=== PATIENT | female | born 1940 | race Caucasian/White ===

== ENCOUNTER 2017-07-16 04:56 | Emergency (ER) | payer SELFPAY ==
[2017-07-16] VITALS (8 sets, daily range): BP systolic 144–202; BP diastolic 67–116; PULSE 72–100; RESP 15–18; TEMP 97.8; O2SAT 97–100
[~2017-07-16 04:56] MED LIST: LORT7.5T3 PO; WARF7.5 PO; [UNRECOGNIZED DRUG - OTHER] PO
[2017-07-16] MEDS ORDERED: VITATAB43 PO (05:28)
[2017-07-16] MEDS ORDERED: CALC1TAB12 PO (05:28)
[2017-07-16] MEDS ORDERED: COUM7.5T PO (05:28)
[2017-07-16] MEDS ORDERED: VITA1000 PO (05:28)
[2017-07-16] MEDS ORDERED: [UNRECOGNIZED DRUG - OTHER] (05:28)
[2017-07-16] MEDS ORDERED: [UNRECOGNIZED DRUG - OTHER] (05:28)
[2017-07-16] MEDS ORDERED: SODIUM CHLOR 0.9% 1000 ML INJ 1,000 ML IV ONE (05:40)
[2017-07-16] MEDS ORDERED: SODIUM CHLORIDE 0.9% FLUSH 10 ML FLUSH IVF PRN (05:45)
--- NOTE | 2017-07-16 05:57 | PD ---
HPI Chief Complaint: Cardiac Complaint Time Seen by Provider: 05:04 Travel History International Travel<30 days: No Contact w/Intl Traveler<30days: No Traveled to known affect area: No History of Present Illness HPI 77-year-old female arrives to the ER by private vehicle. She states she woke up feeling shaky. She took her blood pressure and it was high, 180 over systolic. She denies chest pain shortness of breath. She has had no loss of consciousness. Nausea is reported. No vomiting. Diarrhea is reported. She reports feeling well lately. Onset sudden. Severity mild. PFSH Past Medical History High Cholesterol: Yes Diminished Hearing: No Hypertension: Yes Immunizations Current: Yes Menopausal: Yes Past Surgical History Appendectomy: Yes Cardiac Surgery: Yes (MITRAL VALVE REPLACEMENT) Tonsillectomy: Yes Social History Alcohol Use: Yes (2 X A WEEK) Tobacco Use: No Substance Use: No Allergies-Medications (Allergen,Severity, Reaction): Coded Allergies: No Known Allergies (Verified Adverse Reaction, Unknown, 07/16/17) Reported Meds & Prescriptions Reported Meds & Active Scripts Active Reported Vitamin U70-Gcpaf Acid (Cobalamine Combinations) 500-400 Mcg Tab 1 Tab PO DAILY Vitamin D-1000 (Cholecalciferol) 1,000 Unit Tab 1,000 Units PO DAILY Calcium 500 +D (Calcium Carbonate-Cholecalciferol) 500-400 Mg-Unit Tab 1 Tab PO DAILY [coversly] [Eeztral] Coumadin (Warfarin) 7.5 Mg Tab 9.5 Mg PO DAILY [Eeztral] 10 Mg PO DAILY Review of Systems Except as stated in HPI: all other systems reviewed are Neg General / Constitutional: No: Fever Physical Exam Narrative GENERAL: 77 yo F, WNWD, NAD Vital Signs Date Time Temp Pulse Resp B/P (MAP) Pulse Ox O2 Delivery O2 Flow Rate FiO2 07/16/17 05:42 99 Room Air 07/16/17 05:40 91 18 175/116 (135) 98 Room Air 07/16/17 05:29 100 16 188/82 (117) 100 Room Air 07/16/17 04:58 97.8 100 18 202/92 (128) 99 SKIN: Warm and dry. HEAD: Atraumatic. Normocephalic. EYES: Pupils equal and round. No scleral icterus. No injection or drainage. ENT: No nasal bleeding or discharge. Mucous membranes pink and moist. NECK: Trachea midline. No JVD. CARDIOVASCULAR: Regular rate and rhythm. RESPIRATORY: No accessory muscle use. Clear to auscultation. Breath sounds equal bilaterally. GASTROINTESTINAL: Abdomen soft, non-tender, nondistended. Hepatic and splenic margins not palpable. MUSCULOSKELETAL: Extremities without clubbing, cyanosis, or edema. No obvious deformities. NEUROLOGICAL: Awake and alert. No obvious cranial nerve deficits. Motor grossly within normal limits. Five out of 5 muscle strength in the arms and legs. Normal speech. PSYCHIATRIC: Appropriate mood and affect; insight and judgment normal. Data Data Last Documented VS Vital Signs Date Time Temp Pulse Resp B/P (MAP) Pulse Ox O2 Delivery O2 Flow Rate FiO2 07/16/17 05:42 99 Room Air 07/16/17 05:40 91 18 07/16/17 04:58 97.8 Orders Orders Electrocardiogram (07/16/17 ) Electrocardiogram (07/16/17 05:40) Complete Blood Count With Diff (07/16/17 05:40) Comprehensive Metabolic Panel (07/16/17 05:40) Magnesium (Mg) (07/16/17 05:40) Ckmb (Isoenzyme) Profile (07/16/17 05:40) Troponin I (07/16/17 05:40) Urinalysis - C+S If Indicated (07/16/17 05:40) Chest, Single Ap (07/16/17 05:40) Blood Glucose (07/16/17 05:40) Ecg Monitoring (07/16/17 05:40) Iv Access Insert/Monitor (07/16/17 05:40) Oximetry (07/16/17 05:40) Sodium Chloride 0.9% Flush (Ns Flush) (07/16/17 05:45) Sodium Chlor 0.9% 1000 Ml Inj (Ns 1000 M (07/16/17 05:40) Orthostatic Vital Signs (07/16/17 05:40) CKMB (07/16/17 05:45) CKMB% (07/16/17 05:45) Labs Laboratory Tests Test 07/16/17 05:45 07/16/17 06:25 White Blood Count 7.2 TH/MM3 Red Blood Count 4.10 MIL/MM3 Hemoglobin 13.4 GM/DL Hematocrit 37.8 % Mean Corpuscular Volume 92.1 FL Mean Corpuscular Hemoglobin 32.7 PG Mean Corpuscular Hemoglobin Concent 35.5 % Red Cell Distribution Width 14.1 % Platelet Count 294 TH/MM3 Mean Platelet Volume 7.8 FL Neutrophils (%) (Auto) 45.4 % Lymphocytes (%) (Auto) 45.8 % Monocytes (%) (Auto) 6.1 % Eosinophils (%) (Auto) 2.2 % Basophils (%) (Auto) 0.5 % Neutrophils # (Auto) 3.3 TH/MM3 Lymphocytes # (Auto) 3.3 TH/MM3 Monocytes # (Auto) 0.4 TH/MM3 Eosinophils # (Auto) 0.2 TH/MM3 Basophils # (Auto) 0.0 TH/MM3 CBC Comment DIFF FINAL Differential Comment Blood Urea Nitrogen 19 MG/DL Creatinine 1.08 MG/DL Random Glucose 123 MG/DL Total Protein 8.1 GM/DL Albumin 4.4 GM/DL Calcium Level 9.3 MG/DL Magnesium Level 1.9 MG/DL Alkaline Phosphatase 90 U/L Aspartate Amino Transf (AST/SGOT) 34 U/L Alanine Aminotransferase (ALT/SGPT) 27 U/L Total Bilirubin 0.4 MG/DL Sodium Level 132 MEQ/L Potassium Level 3.5 MEQ/L Chloride Level 96 MEQ/L Carbon Dioxide Level 25.4 MEQ/L Anion Gap 11 MEQ/L Estimat Glomerular Filtration Rate 49 ML/MIN Total Creatine Kinase 212 U/L Creatine Kinase MB 1.4 NG/ML Creatine Kinase MB % 0.7 % Troponin I LESS THAN 0.02 NG/ML MDM Medical Decision Making Medical Screen Exam Complete: Yes Emergency Medical Condition: Yes Medical Record Reviewed: Yes Differential Diagnosis Anemia, electrolyte imbalance, anxiety, arrhythmia Narrative Course CBC & BMP Diagram 07/16/17 05:45 Total Protein 8.1, Albumin 4.4, Calcium Level 9.3, Magnesium Level 1.9, Alkaline Phosphatase 90, Aspartate Amino Transf (AST/SGOT) 34, Alanine Aminotransferase (ALT/SGPT) 27, Total Bilirubin 0.4 Tn < 0.02 Total CK 212 EKG: sinus, rate 92, normal axis intervals Patient reevaluated at 6:45 AM and found to be comfortable in her room. Case discussed with oncoming provider. Urinalysis is pending. Follow-up and reassess patient with disposition pending same. Jabier Patiño MD Jul 16, 2017 05:57
[2017-07-16 06:00] LABS: AUTOMATED NEUTROPHIL # 3.3 TH/MM3 (1.8-7.7); BASOPHIL % 0.5 % (0.0-2.0); EOSINOPHIL # 0.2 TH/MM3 (0-0.4); EOSINOPHIL % 2.2 % (0.0-4.0); HEMATOCRIT 37.8 % (35.0-46.0); HEMOGLOBIN 13.4 GM/DL (11.6-15.3); LYMPH % 45.8 % (9.0-44.0); LYMPHOCYTE # 3.3 TH/MM3 (1.0-4.8); MEAN CELL VOLUME 92.1 FL (80.0-100.0); MEAN CORPUSCULAR HEMOGLOBIN 32.7 PG (27.0-34.0); MEAN CORPUSCULAR HGB CONC 35.5 % (32.0-36.0); MEAN PLATELET VOLUME 7.8 FL (7.0-11.0); MONO % 6.1 % (0.0-8.0); MONOCYTE # 0.4 TH/MM3 (0-0.9); NEUT % 45.4 % (16.0-70.0); PLATELET COUNT 294 TH/MM3 (150-450); RED CELL DISTRIBUTION WIDTH 14.1 % (11.6-17.2); WHITE BLOOD COUNT 7.2 TH/MM3 (4.0-11.0)
[2017-07-16 06:23] LABS: ALBUMIN 4.4 GM/DL (3.4-5.0); ALT (GPT) 27 U/L (10-53); AST (GOT) 34 U/L (15-37); BICARBONATE 25.4 MEQ/L (21.0-32.0); BLOOD UREA NITROGEN 19 MG/DL (7-18); CALCIUM 9.3 MG/DL (8.5-10.1); CHLORIDE 96 MEQ/L (98-107); CREATININE 1.08 MG/DL (0.50-1.00); GLOMERULAR FILTRATION RATE 49 ML/MIN (>89); GLUCOSE,RANDOM 123 MG/DL (74-106); MAGNESIUM 1.9 MG/DL (1.5-2.5); SODIUM (NA) 132 MEQ/L (136-145)
[2017-07-16 06:27] LABS: ALKALINE PHOSPHATASE 90 U/L (45-117); TOTAL BILIRUBIN ADULT 0.4 MG/DL (0.2-1.0); TOTAL PROTEIN 8.1 GM/DL (6.4-8.2); TROPONIN I LESS THAN 0.02 NG/ML (0.02-0.05)
--- NOTE | 2017-07-16 06:30 | RADRPT ---
EXAM DATE/TIME: 07/16/2017 05:44 [facility] COMPARISON: No previous studies available for comparison. INDICATIONS : Chest palpitations. MEDICAL HISTORY : Hypertension. SURGICAL HISTORY : Valve replacement. ENCOUNTER: Initial ACUITY: 1 day PAIN SCORE: 0/10 LOCATION: chest FINDINGS: Opacity in the right cardiophrenic angle is likely epicardial fat. The lungs are otherwise symmetrica lly aerated and grossly clear. Nothing to suggest effusion. Cardiac contours are satisfactory. There is been previous sternotomy. CONCLUSION: No acute disease Harshad Bazan MD on July 16, 2017 at 6:27 Board Certified Radiologist. This report was verified electronically.
[2017-07-16 07:07] LABS: BILIRUBIN, URINE NEG (NEG); BLOOD, URINE SMALL (NEG); GLUCOSE,URINE NEG (NEG); KETONE, URINE NEG (NEG); NITRITE,URINE NEG (NEG); SQUAMOUS EPITHELIAL CELL URINE <1 /hpf (0-5); URINE COLOR YELLOW (YELLW/STRAW); URINE LEUKOCYTE ESTERASE SMALL (NEG)
--- NOTE | 2017-07-16 07:58 | PD ---
Physical Exam Narrative Patient signed out to me by Dr. Patiño, please see his documentation for complete details. Briefly, patient is a 77 year old female who comes in after she woke up with diarrhea this morning. She says she just didn't feel right, so she took her blood pressure and noticed it was high. She says that she felt like her heart was beating fast as well. She believes this is related to eating raw vegetables , potato chips and ice cream for dinner. She never had any chest pain or SOB. She denies any abdominal pain. Currently, she is symptom free and feels better. Exam shows abdomen to be soft and nontender. Lungs CTA. Data Data Last Documented VS Vital Signs Date Time Temp Pulse Resp B/P (MAP) Pulse Ox O2 Delivery O2 Flow Rate FiO2 07/16/17 07:00 77 18 164/77 (106) 97 Room Air 07/16/17 04:58 97.8 Orders Orders Electrocardiogram (07/16/17 05:40) Complete Blood Count With Diff (07/16/17 05:40) Comprehensive Metabolic Panel (07/16/17 05:40) Magnesium (Mg) (07/16/17 05:40) Ckmb (Isoenzyme) Profile (07/16/17 05:40) Troponin I (07/16/17 05:40) Urinalysis - C+S If Indicated (07/16/17 05:40) Chest, Single Ap (07/16/17 05:40) Blood Glucose (07/16/17 05:40) Ecg Monitoring (07/16/17 05:40) Iv Access Insert/Monitor (07/16/17 05:40) Oximetry (07/16/17 05:40) Sodium Chloride 0.9% Flush (Ns Flush) (07/16/17 05:45) Sodium Chlor 0.9% 1000 Ml Inj (Ns 1000 M (07/16/17 05:40) Orthostatic Vital Signs (07/16/17 05:40) CKMB (07/16/17 05:45) CKMB% (07/16/17 05:45) Labs Laboratory Tests Test 07/16/17 05:45 07/16/17 06:25 White Blood Count 7.2 TH/MM3 Red Blood Count 4.10 MIL/MM3 Hemoglobin 13.4 GM/DL Hematocrit 37.8 % Mean Corpuscular Volume 92.1 FL Mean Corpuscular Hemoglobin 32.7 PG Mean Corpuscular Hemoglobin Concent 35.5 % Red Cell Distribution Width 14.1 % Platelet Count 294 TH/MM3 Mean Platelet Volume 7.8 FL Neutrophils (%) (Auto) 45.4 % Lymphocytes (%) (Auto) 45.8 % Monocytes (%) (Auto) 6.1 % Eosinophils (%) (Auto) 2.2 % Basophils (%) (Auto) 0.5 % Neutrophils # (Auto) 3.3 TH/MM3 Lymphocytes # (Auto) 3.3 TH/MM3 Monocytes # (Auto) 0.4 TH/MM3 Eosinophils # (Auto) 0.2 TH/MM3 Basophils # (Auto) 0.0 TH/MM3 CBC Comment DIFF FINAL Differential Comment Blood Urea Nitrogen 19 MG/DL Creatinine 1.08 MG/DL Random Glucose 123 MG/DL Total Protein 8.1 GM/DL Albumin 4.4 GM/DL Calcium Level 9.3 MG/DL Magnesium Level 1.9 MG/DL Alkaline Phosphatase 90 U/L Aspartate Amino Transf (AST/SGOT) 34 U/L Alanine Aminotransferase (ALT/SGPT) 27 U/L Total Bilirubin 0.4 MG/DL Sodium Level 132 MEQ/L Potassium Level 3.5 MEQ/L Chloride Level 96 MEQ/L Carbon Dioxide Level 25.4 MEQ/L Anion Gap 11 MEQ/L Estimat Glomerular Filtration Rate 49 ML/MIN Total Creatine Kinase 212 U/L Creatine Kinase MB 1.4 NG/ML Creatine Kinase MB % 0.7 % Troponin I LESS THAN 0.02 NG/ML Urine Color YELLOW Urine Turbidity CLEAR Urine pH 6.0 Urine Specific [place] 1.010 Urine Protein NEG mg/dL Urine Glucose (UA) NEG mg/dL Urine Ketones NEG mg/dL Urine Occult Blood SMALL Urine Nitrite NEG Urine Bilirubin NEG Urine Urobilinogen LESS THAN 2.0 MG/DL Urine Leukocyte Esterase SMALL Urine RBC 4 /hpf Urine WBC LESS THAN 1 /hpf Urine Squamous Epithelial Cells <1 /hpf Microscopic Urinalysis Comment CULT NOT INDICATED MDM Supervised Visit with DINESH: No Narrative Course Labs show no acute abnormalities. Patient is resting comfortably. Likely symptoms resulted from the episode of diarrhea. Patient is comfortable with discharge at this time. Advised to return any time for any worsening symptoms. Diagnosis Primary Impression: Diarrhea Qualified Codes: R19.7 - Diarrhea, unspecified Additional Impression: Dehydration Patient Instructions: Acute Diarrhea (ED), Dehydration (ED), General Instructions Additional Instruction: Follow up with your doctors. Return to the ED as needed for any worsening symptoms. Disposition: 01 DISCHARGE HOME Condition: Stable Smitha Platt MD Jul 16, 2017 07:58
--- NOTE | 2017-07-16 19:34 | EKG ---
Date Performed: 07/16/2017 Time Performed: 05:20:27 PTAGE: 77 years EKG: Sinus rhythm NONSPECIFIC ST & T-WAVE ABNORMALITY BORDERLINE ECG NO PREVIOUS TRACING DOCTOR: Jesus Vargas Interpretating Date/Time 07/16/2017 19:31:05
== END 2017-07-16 09:00 | disposition home or self-care (01) ==
LOC: NEPE 04:56
DX: R19.7 Diarrhea, unspecified (principal); E86.0 Dehydration; R94.31 Abnormal electrocardiogram [ECG] [EKG]; I10 Essential (primary) hypertension; E78.00 Pure hypercholesterolemia, unspecified; Z95.2 Presence of prosthetic heart valve; Z79.01 Long term (current) use of anticoagulants; Z79.899 Other long term (current) drug therapy
CPT/HCPCS: 71045; 80053; 81001; 82550; 82552; 83735; 84484; 85025; 93005; 96360; 99285; J7030

== ENCOUNTER 2017-07-18 09:56 | Inpatient (IN) | payer BC ==
[~2017-07-18] VITALS: Ht 167.6 cm; Wt 57.0 kg
[~2017-07-18 09:56] MED LIST changes: +CALC1TAB12 PO; +COUM7.5T PO; -LORT7.5T3 PO; +VITA1000 PO; +VITATAB43 PO; -WARF7.5 PO; +[UNRECOGNIZED DRUG - OTHER]; +[UNRECOGNIZED DRUG - OTHER]
[2017-07-18 10:06] VITALS: BP 173/78; PULSE 101; RESP 24; TEMP 100.4; O2SAT 100
[2017-07-18] MEDS ORDERED: LORazepam 2 MG/ML VIAL IV PUSH ONE (10:15)
[2017-07-18] MEDS ORDERED: SODIUM CHLORIDE 0.9% FLUSH 10 ML FLUSH IV FLUSH PRN ×2 (10:15→15:30)
[2017-07-18 10:57] LABS: BILIRUBIN, URINE NEG (NEG); BLOOD, URINE TRACE (NEG); GLUCOSE,URINE NEG (NEG); KETONE, URINE 40 mg/dL (NEG); NITRITE,URINE NEG (NEG); RENAL EPITHELIAL CELLS <1 /hpf; SQUAMOUS EPITHELIAL CELL URINE 1 /hpf (0-5); URINE COLOR YELLOW (YELLW/STRAW); URINE LEUKOCYTE ESTERASE NEG (NEG)
--- NOTE | 2017-07-18 11:07 | RADRPT ---
EXAM DATE/TIME: 07/18/2017 10:27 [facility] COMPARISON: CHEST SINGLE AP, July 16, 2017, 5:44. INDICATIONS : Syncope MEDICAL HISTORY : Hypertension. SURGICAL HISTORY : Valve replacement ENCOUNTER: Initial ACUITY: 1 day PAIN SCORE: 0/10 LOCATION: chest FINDINGS: Sternal wires are noted. Lungs are clear. The heart and pulmonary vascularity are normal. The porti on of the bony skeleton visualized is unremarkable. CONCLUSION: No acute disease. Deni Joel MD FACR on July 18, 2017 at 11:04 Board Certified Radiologist. This report was verified electronically.
[2017-07-18 11:08] LABS: INTERNATIONAL NORMALIZED RATIO 2.4 RATIO; PROTHROMBIN TIME - PATIENT 24.5 SEC (9.8-11.6)
[2017-07-18 11:16] LABS: AUTOMATED NEUTROPHIL # 7.2 TH/MM3 (1.8-7.7); BASOPHIL % 0.4 % (0.0-2.0); EOSINOPHIL % 0.2 % (0.0-4.0); HEMATOCRIT 36.1 % (35.0-46.0); HEMOGLOBIN 12.8 GM/DL (11.6-15.3); LYMPH % 18.8 % (9.0-44.0); LYMPHOCYTE # 1.8 TH/MM3 (1.0-4.8); MEAN CORPUSCULAR HEMOGLOBIN 31.6 PG (27.0-34.0); MEAN CORPUSCULAR HGB CONC 35.5 % (32.0-36.0); MEAN PLATELET VOLUME 8.2 FL (7.0-11.0); MONO % 5.7 % (0.0-8.0); MONOCYTE # 0.5 TH/MM3 (0-0.9); NEUT % 74.9 % (16.0-70.0); PLATELET COUNT 320 TH/MM3 (150-450); RED BLOOD COUNT 4.06 MIL/MM3 (4.00-5.30); RED CELL DISTRIBUTION WIDTH 13.8 % (11.6-17.2); WHITE BLOOD COUNT 9.7 TH/MM3 (4.0-11.0)
[2017-07-18 11:34] LABS: ACETAMINOPHEN LESS THAN 2.0 MCG/ML (10.0-30.0); ALBUMIN 4.5 GM/DL (3.4-5.0); ALKALINE PHOSPHATASE 75 U/L (45-117); ALT (GPT) 23 U/L (10-53); AST (GOT) 35 U/L (15-37); BICARBONATE 20.7 MEQ/L (21.0-32.0); BLOOD UREA NITROGEN 11 MG/DL (7-18); CALCIUM 9.7 MG/DL (8.5-10.1); CHLORIDE 92 MEQ/L (98-107); CREATININE 1.17 MG/DL (0.50-1.00); GLOMERULAR FILTRATION RATE 45 ML/MIN (>89); GLUCOSE,RANDOM 138 MG/DL (74-106); SODIUM (NA) 125 MEQ/L (136-145); TOTAL BILIRUBIN ADULT 0.8 MG/DL (0.2-1.0); TOTAL PROTEIN 8.2 GM/DL (6.4-8.2); TROPONIN I LESS THAN 0.02 NG/ML (0.02-0.05)
[2017-07-18] MEDS ORDERED: POTASSIUM CHLORIDE 10 MEQ CONTROLLED RELEASE TAB PO ONE (12:00)
[2017-07-18] MEDS ORDERED: MIDAZOLAM HCL 2 MG/2 ML VIAL IV PUSH ONE (12:15)
--- NOTE | 2017-07-18 13:05 | RADRPT ---
EXAM DATE/TIME: 07/18/2017 12:12 [facility] COMPARISON: No previous studies available for comparison. INDICATIONS : Altered mental status RADIATION DOSE: 31.17 CTDIvol (mGy) MEDICAL HISTORY : Cardiovascular disease. Hypertension. SURGICAL HISTORY : Appendectomy. ENCOUNTER: Initial ACUITY: 1 day PAIN SCALE: Non-responsive LOCATION: cranial TECHNIQUE: Multiple contiguous axial images were obtained of the head. Using automated exposure control and adj ustment of the mA and/or kV according to patient size, radiation dose was kept as low as reasonably a chievable to obtain optimal diagnostic quality images. DICOM format image data is available electro nically for review and comparison. FINDINGS: CEREBRUM: The ventricles are normal for age. No evidence of midline shift, mass lesion, hemorrhage or acute in farction. No extra-axial fluid collections are seen. POSTERIOR FOSSA: The cerebellum and brainstem are intact. The 4th ventricle is midline. The cerebellopontine angle i s unremarkable. EXTRACRANIAL: The visualized portion of the orbits is intact. SKULL: The calvaria is intact. No evidence of skull fracture. CONCLUSION: Normal examination. Harshad Bazan MD on July 18, 2017 at 13:03 Board Certified Radiologist. This report was verified electronically.
[2017-07-18 13:22] VITALS: BP 147/69; PULSE 105; RESP 22; O2SAT 100
--- NOTE | 2017-07-18 14:03 | PD ---
HPI Chief Complaint: Altered Mental Status Time Seen by Provider: 10:06 Travel History International Travel<30 days: No Contact w/Intl Traveler<30days: No Traveled to known affect area: No History of Present Illness HPI Patient is a 77-year-old female who is brought in by EMS due to altered mental status. Per EMS, there was someone working on her house and they saw her lugging a large trash can and they were worried about her, so they called 911. Patient is quite altered screaming "oh my God" over and over, and provides no history. She was seen here 2 days ago and discharged home from the emergency department [facility] Past Medical History Medical History: Unable to Obtain High Cholesterol: Yes Diminished Hearing: No Hypertension: Yes Immunizations Current: Yes Influenza Vaccination: No ?: Unknown Menopausal: Yes Past Surgical History Surgical History: Unable to Obtain Appendectomy: Yes Cardiac Surgery: Yes (MITRAL VALVE REPLACEMENT) Tonsillectomy: Yes Social History Alcohol Use: Yes (2 X A WEEK) Tobacco Use: No Substance Use: No Allergies-Medications (Allergen,Severity, Reaction): Coded Allergies: No Known Allergies (Verified Adverse Reaction, Unknown, 07/16/17) Reported Meds & Prescriptions Reported Meds & Active Scripts Active Reported Vitamin Z01-Fbkxv Acid (Cobalamine Combinations) 500-400 Mcg Tab 1 Tab PO DAILY Vitamin D-1000 (Cholecalciferol) 1,000 Unit Tab 1,000 Units PO DAILY Calcium 500 +D (Calcium Carbonate-Cholecalciferol) 500-400 Mg-Unit Tab 1 Tab PO DAILY [coversly] [Eeztral] Coumadin (Warfarin) 7.5 Mg Tab 9.5 Mg PO DAILY [Eeztral] 10 Mg PO DAILY Review of Systems ROS Limitations: Altered Mental Status Physical Exam Narrative GENERAL: Awake, agitated, confused. SKIN: Focused skin assessment warm/dry. Some bruising to the upper arms, no infection. HEAD: Atraumatic. Normocephalic. EYES: Pupils equal and round and reactive. No scleral icterus. Extraocular movements intact. ENT: Mucous membranes pink and moist. NECK: Trachea midline. No JVD. CARDIOVASCULAR: Regular rate and rhythm. No murmur appreciated. RESPIRATORY: No accessory muscle use. Clear to auscultation. Breath sounds equal bilaterally. GASTROINTESTINAL: Abdomen soft, non-tender, nondistended. MUSCULOSKELETAL: No obvious deformities. No clubbing. No cyanosis. No edema. NEUROLOGICAL: Awake and alert, confused, and does not follow directions.. No obvious cranial nerve deficits. Moving all of her extremities. Speech is clear. Data Data Last Documented VS Vital Signs Date Time Temp Pulse Resp B/P (MAP) Pulse Ox O2 Delivery O2 Flow Rate FiO2 07/18/17 13:22 105 22 147/69 (95) 100 Room Air 07/18/17 10:06 100.4 Orders Orders Ammonia (07/18/17 10:06) Complete Blood Count With Diff (07/18/17 10:06) Comprehensive Metabolic Panel (07/18/17 10:06) Creatine Kinase (Cpk) (07/18/17 10:06) Prothrombin Time / Inr (Pt) (07/18/17 10:06) Act Partial Throm Time (Ptt) (07/18/17 10:06) Troponin I (07/18/17 10:06) Thyroid Stimulating Hormone (07/18/17 10:06) Urinalysis - C+S If Indicated (07/18/17 10:06) Lactic Acid Sepsis Protocol (07/18/17 10:06) Chest, Single Ap (07/18/17 10:06) Ct Brain W/O Iv Contrast(Rout) (07/18/17 10:06) Blood Glucose (07/18/17 10:06) Ecg Monitoring (07/18/17 10:06) Iv Access Insert/Monitor (07/18/17 10:06) Oximetry (07/18/17 10:06) Sodium Chloride 0.9% Flush (Ns Flush) (07/18/17 10:15) Drug Screen, Random Urine (07/18/17 10:06) Alcohol (Ethanol) (07/18/17 10:06) Tylenol (Acetaminophen) (07/18/17 10:06) Salicylates (Aspirin) (07/18/17 10:06) Lorazepam Inj (Ativan Inj) (07/18/17 10:15) Electrocardiogram (07/18/17 ) Potassium Chloride (Kcl) (07/18/17 12:00) Midazolam Inj (Versed Inj) (07/18/17 12:15) Sodium Chlor 0.9% 1000 Ml Inj (Ns 1000 M (07/18/17 14:15) Ankle, Complete ([id number]) (07/18/17 ) Admit Order (Ed Use Only) (07/18/17 ) Labs Laboratory Tests Test 07/18/17 10:26 07/18/17 13:50 White Blood Count 9.7 TH/MM3 Red Blood Count 4.06 MIL/MM3 Hemoglobin 12.8 GM/DL Hematocrit 36.1 % Mean Corpuscular Volume 89.0 FL Mean Corpuscular Hemoglobin 31.6 PG Mean Corpuscular Hemoglobin Concent 35.5 % Red Cell Distribution Width 13.8 % Platelet Count 320 TH/MM3 Mean Platelet Volume 8.2 FL Neutrophils (%) (Auto) 74.9 % Lymphocytes (%) (Auto) 18.8 % Monocytes (%) (Auto) 5.7 % Eosinophils (%) (Auto) 0.2 % Basophils (%) (Auto) 0.4 % Neutrophils # (Auto) 7.2 TH/MM3 Lymphocytes # (Auto) 1.8 TH/MM3 Monocytes # (Auto) 0.5 TH/MM3 Eosinophils # (Auto) 0.0 TH/MM3 Basophils # (Auto) 0.0 TH/MM3 CBC Comment DIFF FINAL Differential Comment Prothrombin Time 24.5 SEC Prothromb Time International Ratio 2.4 RATIO Activated Partial Thromboplast Time 35.2 SEC Urine Color YELLOW Urine Turbidity CLEAR Urine pH 8.0 Urine Specific [place] 1.012 Urine Protein TRACE mg/dL Urine Glucose (UA) NEG mg/dL Urine Ketones 40 mg/dL Urine Occult Blood TRACE Urine Nitrite NEG Urine Bilirubin NEG Urine Urobilinogen LESS THAN 2.0 MG/DL Urine Leukocyte Esterase NEG Urine RBC 5 /hpf Urine WBC 1 /hpf Urine Squamous Epithelial Cells 1 /hpf Urine Renal Epithelial Cells <1 /hpf Microscopic Urinalysis Comment CATH-CULT NOT IND Blood Urea Nitrogen 11 MG/DL Creatinine 1.17 MG/DL Random Glucose 138 MG/DL Total Protein 8.2 GM/DL Albumin 4.5 GM/DL Calcium Level 9.7 MG/DL Alkaline Phosphatase 75 U/L Aspartate Amino Transf (AST/SGOT) 35 U/L Alanine Aminotransferase (ALT/SGPT) 23 U/L Total Bilirubin 0.8 MG/DL Sodium Level 125 MEQ/L Potassium Level 2.9 MEQ/L Chloride Level 92 MEQ/L Carbon Dioxide Level 20.7 MEQ/L Anion Gap 12 MEQ/L Estimat Glomerular Filtration Rate 45 ML/MIN Lactic Acid Level 3.0 mmol/L 1.3 mmol/L Ammonia 11 MCMOL/L Total Creatine Kinase 178 U/L Troponin I LESS THAN 0.02 NG/ML Thyroid Stimulating Hormone 3rd Gen 1.180 uIU/ML Salicylates Level LESS THAN 1.7 MG/DL Urine Opiates Screen NEG Acetaminophen Level LESS THAN 2.0 MCG/ML Urine Barbiturates Screen NEG Urine Amphetamines Screen NEG Urine Benzodiazepines Screen NEG Urine Cocaine Screen NEG Urine Cannabinoids Screen NEG Ethyl Alcohol Level LESS THAN 3 MG/DL MDM Medical Decision Making Medical Screen Exam Complete: Yes Emergency Medical Condition: Yes Medical Record Reviewed: Yes Interpretation(s) ECG shows sinus tachycardia at a rate of 105 Differential Diagnosis Electrolyte abnormality versus CVA versus sepsis Narrative Course Patient is a 77-year-old female who comes in due to altered mental status. Patient is unable to provide any history, she is repeating only got over and over again. IV established, labs sent. Patient given a dose of Ativan. Labs show a lactic acid of 3.0. Sodium is 125. CT head shows no acute abnormalities. Chest x-ray shows no acute abnormalities. Last [address] 07/18/17 1006 Signed Impressions: Service Date/Time: Tuesday, July 18, 2017 12:12 - CONCLUSION: Normal examination. Harshad Bazan MD Chest X-Ray 07/18/17 1006 Signed Impressions: Service Date/Time: Tuesday, July 18, 2017 10:27 - CONCLUSION: No acute disease. Deni Joel MD FACR Ankle X-Ray 07/18/17 0000 Signed Impressions: Service Date/Time: Tuesday, July 18, 2017 14:12 - CONCLUSION: No acute bony findings Harshad Bazan MD Patient required Versed to obtain the scan of her head because she was too agitated to lay for the test. After about 4 hours, she started to become a little bit more lucid. She still was unable to express what was bothering her. She was able to tell me her name and where she is from. When asked if anything hurt she said no. She says very little else. Patient will be admitted for further management. Diagnosis Primary Impression: Altered mental status Qualified Codes: R41.82 - Altered mental status, unspecified Additional Impression: Hyponatremia Admitting Information Admitting Physician Requests: Admit Smitha Platt MD Jul 18, 2017 14:03
[2017-07-18] MEDS ORDERED: SODIUM CHLOR 0.9% 1000 ML INJ 1,000 ML IV ONE (14:15)
--- NOTE | 2017-07-18 14:50 | HHI.HP ---
HPI Service Family Medicine Primary Care Physician Unknown Admission Diagnosis AMS Diagnoses: International Travel<30 Days: No Contact w/Intl Traveler<30days: No Known Affected Area: No History of Present Illness Ms. Ruiz is a 77-year-old white female with a past medical history of hypertension and hyperlipidemia presenting to the ED today with altered mental status. She is unable to answer a lot of my questions due to her state, but she does remember waking up this morning. She did not have anything for breakfast. She states that she is not in any pain. No fevers or chills, no chest pain, no trouble breathing, no abdominal pain, no nausea vomiting. Dates that she did have diarrhea this morning, having 3 bowel movements. She is also been drinking a lot of water. She has had about 7 bottles of water today. When her left ankle swelling was noted, she stated that she has had surgery on her ankle long time ago. She usually walks with a limp and has swelling. She has not had any recent falls. (Evelin Leblanc MD R1) Review of Systems Constitutional: DENIES: Fever, Chills Eyes: DENIES: Blurred vision Ears, nose, mouth, throat: DENIES: Throat pain Respiratory: DENIES: Shortness of breath Cardiovascular: DENIES: Chest pain Gastrointestinal: COMPLAINS OF: Diarrhea, DENIES: Abdominal pain, Nausea, Vomiting (Evelin Leblanc MD R1) Past Family Social History Past Medical History Hyperlipidemia Hypertension Past Surgical History Mitral valve replacement Appendectomy Tonsillectomy Reported Medications Reported Meds & Active Scripts Active Reported Vitamin I99-Bqqny Acid (Cobalamine Combinations) 500-400 Mcg Tab 1 Tab PO DAILY Vitamin D-1000 (Cholecalciferol) 1,000 Unit Tab 1,000 Units PO DAILY Calcium 500 +D (Calcium Carbonate-Cholecalciferol) 500-400 Mg-Unit Tab 1 Tab PO DAILY [coversly] [Eeztral] Coumadin (Warfarin) 7.5 Mg Tab 9.5 Mg PO DAILY [Eeztral] 10 Mg PO DAILY (Evelin Leblanc MD R1) Allergies: Coded Allergies: No Known Allergies (Verified Allergy, Unknown, 07/18/17) Family History Unable to obtain Social History Lives alone (Evelin Leblanc MD R1) Physical Exam Vital Signs Vital Signs Date Time Temp Pulse Resp B/P (MAP) Pulse Ox O2 Delivery O2 Flow Rate FiO2 07/18/17 13:22 105 22 147/69 (95) 100 Room Air 07/18/17 10:16 100 Room Air 07/18/17 10:06 100.4 101 24 173/78 (109) 100 Physical Exam GENERAL: This is a well-nourished, well-developed patient, moaning, confused. SKIN: No rashes, ecchymoses or lesions. Cool and dry. HEAD: Atraumatic. Normocephalic. EYES: Pupils equal round and reactive. Extraocular motions intact. No scleral icterus. No injection or drainage. ENT: Nose without bleeding, purulent drainage or septal hematoma. Throat without erythema, tonsillar hypertrophy or exudate. Uvula midline. Airway patent. NECK: Trachea midline. No JVD or lymphadenopathy. Supple, nontender, no meningeal signs. CARDIOVASCULAR: Regular rate and rhythm without murmurs, gallops, or rubs. RESPIRATORY: Clear to auscultation. Breath sounds equal bilaterally. No wheezes , rales, or rhonchi. GASTROINTESTINAL: Abdomen soft, non-tender, nondistended. No hepato-splenomegaly , or palpable masses. No guarding. MUSCULOSKELETAL: Extremities without clubbing, cyanosis, or edema. Left ankle edema with incisional scar. No calf tenderness. NEUROLOGICAL: Awake and confused. Cranial nerves II through XII intact. Motor and sensory grossly within normal limits. Five out of 5 muscle strength in all muscle groups. Patient had difficulty understanding directions. Oriented to self. Seemed to have trouble with certain questions, but had little difficulty with yes/no questions. Intermittently clear in her answers. Laboratory Laboratory Tests Test 07/18/17 10:26 07/18/17 13:50 White Blood Count 9.7 Red Blood Count 4.06 Hemoglobin 12.8 Hematocrit 36.1 Mean Corpuscular Volume 89.0 Mean Corpuscular Hemoglobin 31.6 Mean Corpuscular Hemoglobin Concent 35.5 Red Cell Distribution Width 13.8 Platelet Count 320 Mean Platelet Volume 8.2 Neutrophils (%) (Auto) 74.9 Lymphocytes (%) (Auto) 18.8 Monocytes (%) (Auto) 5.7 Eosinophils (%) (Auto) 0.2 Basophils (%) (Auto) 0.4 Neutrophils # (Auto) 7.2 Lymphocytes # (Auto) 1.8 Monocytes # (Auto) 0.5 Eosinophils # (Auto) 0.0 Basophils # (Auto) 0.0 CBC Comment DIFF FINAL Differential Comment Prothrombin Time 24.5 Prothromb Time International Ratio 2.4 Activated Partial Thromboplast Time 35.2 Urine Color YELLOW Urine Turbidity CLEAR Urine pH 8.0 Urine Specific [place] 1.012 Urine Protein TRACE Urine Glucose (UA) NEG Urine Ketones 40 Urine Occult Blood TRACE Urine Nitrite NEG Urine Bilirubin NEG Urine Urobilinogen LESS THAN 2.0 Urine Leukocyte Esterase NEG Urine RBC 5 Urine WBC 1 Urine Squamous Epithelial Cells 1 Urine Renal Epithelial Cells <1 Microscopic Urinalysis Comment CATH-CULT NOT IND Blood Urea Nitrogen 11 Creatinine 1.17 Random Glucose 138 Total Protein 8.2 Albumin 4.5 Calcium Level 9.7 Alkaline Phosphatase 75 Aspartate Amino Transf (AST/SGOT) 35 Alanine Aminotransferase (ALT/SGPT) 23 Total Bilirubin 0.8 Sodium Level 125 Potassium Level 2.9 Chloride Level 92 Carbon Dioxide Level 20.7 Anion Gap 12 Estimat Glomerular Filtration Rate 45 Lactic Acid Level 3.0 1.3 Ammonia 11 Total Creatine Kinase 178 Troponin I LESS THAN 0.02 Thyroid Stimulating Hormone 3rd Gen 1.180 Salicylates Level LESS THAN 1.7 Urine Opiates Screen NEG Acetaminophen Level LESS THAN 2.0 Urine Barbiturates Screen NEG Urine Amphetamines Screen NEG Urine Benzodiazepines Screen NEG Urine Cocaine Screen NEG Urine Cannabinoids Screen NEG Ethyl Alcohol Level LESS THAN 3 (Evelin Leblanc MD R1) Result Diagram: 07/18/17 1026 07/18/17 1026 Imaging Last Impressions Head CT 07/18/17 1006 Signed Impressions: Service Date/Time: Tuesday, July 18, 2017 12:12 - CONCLUSION: Normal examination. Harshad Bazan MD Chest X-Ray 07/18/17 1006 Signed Impressions: Service Date/Time: Tuesday, July 18, 2017 10:27 - CONCLUSION: No acute disease. Deni Joel MD FACR Ankle X-Ray 07/18/17 0000 Signed Impressions: Service Date/Time: Tuesday, July 18, 2017 14:12 - CONCLUSION: No acute bony findings Harshad Bazan MD (Evelin Leblanc MD R1) Caprini VTE Risk Assessment Caprini VTE Risk Assessment: Mod/High Risk (score >= 2) Caprini Risk Assessment Model Point Value = 1 Point Value = 2 Point Value = 3 Point Value = 5 Age 41-60 Minor surgery BMI > 25 kg/m2 Swollen legs Varicose veins or History of unexplained or recurrent spontaneous Oral contraceptives or hormone replacement Sepsis (< 1 month) Serious lung disease, including pneumonia (< 1 month) Abnormal pulmonary function Acute myocardial infarction Congestive heart failure (< 1 month) History of inflammatory bowel disease Medical patient at bed rest Age 61-74 Arthroscopic surgery Major open surgery (> 45 min) Laparoscopic surgery (> 45 min) Malignancy Confined to bed (> 72 hours) Immobilizing plaster cast Central venous access Age >= 75 History of VTE Family history of VTE Factor V Leiden Prothrombin [id number] Lupus anticoagulant Anticardiolipin antibodies Elevated serum homocysteine Heparin-induced thrombocytopenia Other congenital or acquired thrombophilia Stroke (< 1 month) Elective arthroplasty Hip, pelvis, or leg fracture Acute spinal cord injury (< 1 month) Prophylaxis Regimen Total Risk Factor Score Risk Level Prophylaxis Regimen 0-1 Low Early ambulation 2 Moderate Order ONE of the following: *Sequential Compression Device (SCD) *Heparin 5000 units SQ BID 3-4 Higher Order ONE of the following medications: *Heparin 5000 units SQ TID *Enoxaparin/Lovenox 40 mg SQ daily (WT < 150 kg, CrCl > 30 mL/min) *Enoxaparin/Lovenox 30 mg SQ daily (WT < 150 kg, CrCl > 10-29 mL/min) *Enoxaparin/Lovenox 30 mg SQ BID (WT < 150 kg, CrCl > 30 mL/min) AND/OR *Sequential Compression Device (SCD) 5 or more Highest Order ONE of the following medications: *Heparin 5000 units SQ TID (Preferred with Epidurals) *Enoxaparin/Lovenox 40 mg SQ daily (WT < 150 kg, CrCl > 30 mL/min) *Enoxaparin/Lovenox 30 mg SQ daily (WT < 150 kg, CrCl > 10-29 mL/min) *Enoxaparin/Lovenox 30 mg SQ BID (WT < 150 kg, CrCl > 30 mL/min) AND *Sequential Compression Device (SCD) (Evelin Leblanc MD R1) Assessment and Plan Assessment and Plan 77-year-old white female with past medical history of hypertension and hyperlipidemia and with altered mental status. She has been admitted to our inpatient service. Code Status Unable to obtain due to mental status, therefore full code status was placed Discussed Condition With Doctors Serena and Ashtyn (Evelin Leblanc MD R1) Attending Attestation Patient seen and examined. Case reviewed and discussed with the resident team. Agree with plan of care as discussed with me and documented in the resident note. pt seen on admission with the residents in the ED (Carline Chamorro MD) Problem List: (1) Altered mental status ICD Codes: R41.82 - Altered mental status, unspecified Status: Acute Plan: Patient brought in by EMS who was called by a concerned neighbor. Patient originally totally unable to answer questions by ED physician. Upon our assessment she had improved, although unable to answer most of our questioning. Neurological exam relatively normal although patient had difficulty following instructions. Head CT on admission was normal. May be due to CVA versus encephalopathy versus acute hyponatremia versus transient global ischemia -1 L bolus given in ED -Blood cultures pending -MRI pending -Neurology consulted, appreciate recommendations -Speech therapy consulted for cognitive, aphasia evaluation -PT/OT consulted Neuro checks every 4 hours (2) Hyponatremia ICD Codes: E87.1 - Hypo-osmolality and hyponatremia Status: Acute Plan: Moderate acute hyponatremia. Sodium 125 on admission, was 132 two days prior. Patient admits to drinking large amounts of water every day. -Repeat BMP at 1605 shows increase to 128 -Fluid restriction to 2 L (3) Hypokalemia ICD Codes: E87.6 - Hypokalemia Status: Acute Plan: Potassium low to 2.9 on admission -Repeat BMP at 1605 showed normalization to 3.7 (4) Hypertension ICD Codes: I10 - Essential (primary) hypertension Status: Chronic Plan: Unable to continue at home medication Coversyl Per pharmacy recommendations will start lisinopril 10 mg qD while in the hospital -Will continue to monitor (5) Hyperlipemia ICD Codes: E78.5 - Hyperlipidemia, unspecified Status: Chronic Plan: Will continue at home medication Ezetal, Zetia, 10 mg daily (6) FEN Status: Acute Plan: Fluids: Bedside swallow pending Electrolytes: hyponatremic, hypokalemia resolved Nutrition: If passes bedside swallow will start heart-healthy diet with fluid restriction to 2 L DVT Prophylaxis: Early ambulation. Will hold at home Coumadin until results of MRI GI Prophylaxis: None indicated at this time (Evelin Leblanc MD R1) Physician Certification 2 Midnight Certification Type: Admission for Inpatient Services Order for Inpatient Services The services are ordered in accordance with Medicare regulations or non- Medicare payer requirements, as applicable. In the case of services not specified as inpatient-only, they are appropriately provided as inpatient services in accordance with the 2-midnight benchmark. Estimated LOS (days): 2 days is the estimated time the patient will need to remain in the hospital, assuming treatment plan goals are met and no additional complications. Post-Hospital Plan: Home (Evelin Leblanc MD R1) Problem Qualifiers (1) Altered mental status: Qualified Codes: R41.82 - Altered mental status, unspecified (2) Hypertension: Qualified Codes: I10 - Essential (primary) hypertension (3) Hyperlipemia: Qualified Codes: E78.00 - Pure hypercholesterolemia, unspecified Evelin Leblanc MD R1 Jul 18, 2017 14:50 Carline Chamorro MD Jul 19, 2017 11:34
--- NOTE | 2017-07-18 14:53 | RADRPT ---
EXAM DATE/TIME: 07/18/2017 14:12 [facility] COMPARISON: No previous studies available for comparison. INDICATIONS : Pain in left ankle. Swelling. MEDICAL HISTORY : None. SURGICAL HISTORY : Left ankle surgery. ENCOUNTER: Initial ACUITY: 1 day PAIN SCORE: 5/10 LOCATION: Left ankle FINDINGS: There has been previous left ankle fusion with an IM marlys traversing from the distal tibia into the ca lcaneus through the talus. There are multiple fully and partially threaded screws also traversing the ankle joint and hindfoot. There does appear to be solid bony fusion. 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 Visualized hindfoot is otherwise grossly intact. There is no evide nce of acute fracture injury. No destructive change or other findings to suggest specific acute bony process. CONCLUSION: No acute bony findings Harshad Bazan MD on July 18, 2017 at 14:49 Board Certified Radiologist. This report was verified electronically.
[2017-07-18] MEDS ORDERED: ACETAMINOPHEN 325 MG TAB PO PRN (15:30)
[2017-07-18] MEDS ORDERED: ONDANSETRON HCL 4 MG/2 ML VIAL IVP PRN (15:30)
[2017-07-18] MEDS ORDERED: NALOXONE HCL 0.4 MG/ML AMP IV PUSH PRN (15:30)
[2017-07-18 16:59] VITALS: BP 138/65; PULSE 99; RESP 17; O2SAT 99
[2017-07-18 17:21] LABS: BICARBONATE 24.5 MEQ/L (21.0-32.0); CALCIUM 8.9 MG/DL (8.5-10.1); CREATININE 1.06 MG/DL (0.50-1.00)
[2017-07-18 17:45] VITALS: BP 145/65; PULSE 82; RESP 16; TEMP 96.7; O2SAT 97
[2017-07-18] MEDS ORDERED: LISINOPRIL 10 MG TAB PO ONE (19:00)
[2017-07-18 20:00] VITALS: BP 152/69; PULSE 81; RESP 16; TEMP 96.7; O2SAT 97
[2017-07-18] MEDS: SODIUM CHLORIDE 0.9% FLUSH 10 ML FLUSH IV FLUSH SCH (20:54)
[2017-07-19] VITALS: BP 121/58; PULSE 76; RESP 17; TEMP 98.5; O2SAT 98
[2017-07-19 04:00] VITALS: BP 105/55; PULSE 76; RESP 16; TEMP 96.3; O2SAT 98
[2017-07-19 08:00] VITALS: BP 122/58; PULSE 67; RESP 18; TEMP 98; O2SAT 97
[2017-07-19] MEDS: LISINOPRIL 10 MG TAB PO SCH (08:10)
[2017-07-19] MEDS: EZETIMIBE 10 MG TAB PO SCH (08:12)
[2017-07-19] MEDS: SODIUM CHLORIDE 0.9% FLUSH 10 ML FLUSH IV FLUSH SCH ×2 (08:12→23:26)
--- NOTE | 2017-07-19 08:12 | PD.CONS ---
History of Present Illness Service Neurology Consult Requested By medical Reason for Consult confusion Primary Care Physician Unknown History of Present Illness 77-year-old f admitted for altered mental status noticed by her tailor's aide. She is from [place], [place], and spends her morris here. PCP is [place]. she is not sure what happened. no lu, no neck pain. denies any change in meds. feels well at present. friends next to her state she is back to herself. na level 125. mild azotemia.no hx of tia/stroke/sz. on coumadin with inr 2.4. ct brain naicp. wbc nml. Review of Systems as above and admit hp Past Family Social History Past Medical History Hyperlipidemia Hypertension Past Surgical History Mitral valve replacement Appendectomy Tonsillectomy Allergies: Coded Allergies: No Known Allergies (Verified Allergy, Unknown, 07/18/17) Family History Unable to obtain Social History Lives alone Review of Systems All other ROS: ROS reviewed as documented in chart Past Family Social History Allergies: Coded Allergies: No Known Allergies (Verified Allergy, Unknown, 07/18/17) Active Ordered Medications Current Medications Medications (Trade) Dose Ordered Sig/Adrienne Route Start Time Stop Time Status Last Admin (NS Flush) 2 ml UNSCH PRN IV FLUSH 07/18/17 10:15 (NS Flush) 2 ml UNSCH PRN IV FLUSH 07/18/17 15:30 (NS Flush) 2 ml BID IV FLUSH 07/18/17 21:00 07/18/17 20:54 (Tylenol) 650 mg Q4H PRN PO 07/18/17 15:30 (Zofran Inj) 4 mg Q6H PRN IVP 07/18/17 15:30 07/18/17 18:33 (Narcan Inj) 0.4 mg UNSCH PRN IV PUSH 07/18/17 15:30 (Zetia) 10 mg DAILY PO 07/19/17 09:00 (Prinivil) 10 mg DAILY PO 07/19/17 09:00 (Pneumovax-23 Inj) 25 mcg ONCE ONCE IM 07/19/17 10:00 07/19/17 10:01 Exam I&O / VS Vital Signs Date Time Temp Pulse Resp B/P (MAP) Pulse Ox O2 Delivery O2 Flow Rate FiO2 07/19/17 04:00 96.3 76 16 105/55 (72) 98 07/19/17 00:00 98.5 76 17 121/58 (79) 98 07/18/17 20:00 96.7 81 16 152/69 (96) 97 07/18/17 17:45 96.7 82 16 145/65 (91) 97 07/18/17 17:22 07/18/17 16:59 99 17 138/65 (89) 99 Room Air 07/18/17 13:22 105 22 147/69 (95) 100 Room Air 07/18/17 10:16 100 Room Air 07/18/17 10:06 100.4 101 24 173/78 (109) 100 General: Alert and Oriented, No acute distress Eye: EOMI Respiratory: Non-labored respirations Cardiology: Normal rate Musculoskeletal: ROM Neurologic: Alert, Oriented, Normal sensory, Normal motor, No focal defects, CN II-XII intact, Normal DTR's Psychiatric: Cooperative Exam Comments ox 3, no aphasia, follows, pres Trump, recognizes friends, able to name objects , smiles, conversates appropriately, eomi, ou 3-2mm, no focal weakness Review/Management Diagnosis/Plan: (1) Altered mental status ICD Codes: R41.82 - Altered mental status, unspecified Status: Acute Plan: transient confusion, resolved etiology: tga, complex-partial sz 2/2 hyponatremia? symptoms appear resolved slight temp on arrival nh3 nml recs mri/mra brain eeg watch na levels check esr/crp follow exam d/w medical attending (2) Hyponatremia ICD Codes: E87.1 - Hypo-osmolality and hyponatremia Status: Acute (3) Hypertension ICD Codes: I10 - Essential (primary) hypertension Status: Chronic Problem Qualifiers (1) Altered mental status: Qualified Codes: R41.82 - Altered mental status, unspecified (2) Hypertension: Qualified Codes: I10 - Essential (primary) hypertension Ramses Urena MD Jul 19, 2017 08:12
--- NOTE | 2017-07-19 09:06 | HHI.HP ---
[facility] Service Family Medicine Primary Care Physician Unknown Admission Diagnosis AMS Diagnoses: (1) Altered mental status Diagnosis: Principal (2) Hyponatremia Diagnosis: Principal (3) Hypokalemia Diagnosis: Principal (4) Hypertension Diagnosis: Principal (5) Hyperlipemia Diagnosis: Principal (6) FEN Diagnosis: Principal International Travel<30 Days: No Contact w/Intl Traveler<30days: No Known Affected Area: No History of Present Illness Ms. Ruiz is a 77-year-old white female with a past medical history of hypertension and hyperlipidemia presenting to the ED with altered mental status. She was unable to answer a lot of my questions due to her confusion, but she did remember waking up the morning. She did not have anything for breakfast. She stated that she is not in any pain. No fevers or chills, no chest pain, no trouble breathing, no abdominal pain, no nausea vomiting. Dates that she did have diarrhea the morning, having 3 bowel movements. She was also been drinking a lot of water. She had about 7 bottles of water the day of admission When her left ankle swelling was noted, she stated that she has had surgery on her ankle long time ago. She usually walks with a limp and has swelling. She has not had any recent falls. She was confused in the ED repeating the same thing over and over for hours, " Oh my God" but initially not answering any questions. she was not somnolent at the time we saw her. per her ED Dr who had seen her 2 days prior, she had been completely lucid and a good conversationalist and historian. As she was in the ED, she started to improve and was cooperative with her neuro exam but confused at times. today she did not remember seeing us (her 3 Drs at all). she is back to her normal baseline today according to her 2 neighbors who are in the room with her this am. she had been drinking more water at home for the day or so prior to admission and her initial Na was 125. Review of Systems ROS Limitations: Clinical Condition, Poor Historian Cardiovascular: DENIES: Chest pain Gastrointestinal: DENIES: Abdominal pain Neurologic: DENIES: Poor Balance Psychiatric: COMPLAINS OF: Confusion Other Constitutional: DENIES: Fever, Chills Eyes: DENIES: Blurred vision Ears, nose, mouth, throat: DENIES: Throat pain Respiratory: DENIES: Shortness of breath Cardiovascular: DENIES: Chest pain Gastrointestinal: COMPLAINS OF: Diarrhea, DENIES: Abdominal pain, Nausea, Vomiting Past Family Social History Past Medical History Hyperlipidemia Hypertension Past Surgical History Mitral valve replacement Appendectomy Tonsillectomy Allergies: Coded Allergies: No Known Allergies (Verified Allergy, Unknown, 07/18/17) Family History Unable to obtain Social History Lives alone Physical Exam Vital Signs Vital Signs Date Time Temp Pulse Resp B/P (MAP) Pulse Ox O2 Delivery O2 Flow Rate FiO2 07/19/17 08:00 98.0 67 18 122/58 (79) 97 07/19/17 04:00 96.3 76 16 105/55 (72) 98 07/19/17 00:00 98.5 76 17 121/58 (79) 98 07/18/17 20:00 96.7 81 16 152/69 (96) 97 07/18/17 17:45 96.7 82 16 145/65 (91) 97 07/18/17 17:22 07/18/17 16:59 99 17 138/65 (89) 99 Room Air 07/18/17 13:22 105 22 147/69 (95) 100 Room Air 07/18/17 10:16 100 Room Air 07/18/17 10:06 100.4 101 24 173/78 (109) 100 Physical Exam GENERAL: This is a well-nourished, well-developed patient, moaning, confused in the ED. now she is smiling and answers all questions appropriately SKIN: No rashes, ecchymoses or lesions. Cool and dry. HEAD: Atraumatic. Normocephalic. EYES: Pupils equal round and reactive. Extraocular motions intact. No scleral icterus. No injection or drainage. ENT: Nose without bleeding, purulent drainage or septal hematoma. Throat without erythema, tonsillar hypertrophy or exudate. Uvula midline. Airway patent. throat exam done in ED NECK: Trachea midline. No JVD or lymphadenopathy. Supple, nontender, no meningeal signs. CARDIOVASCULAR: Regular rate and rhythm without murmurs, gallops, or rubs. RESPIRATORY: Clear to auscultation. Breath sounds equal bilaterally. No wheezes , rales, or rhonchi. GASTROINTESTINAL: Abdomen soft, non-tender, nondistended. No hepato-splenomegaly , or palpable masses. No guarding. MUSCULOSKELETAL: Extremities without clubbing, cyanosis, or edema. Left ankle edema with incisional scar. No calf tenderness. NEUROLOGICAL: Awake and confused on admission. Cranial nerves II through XII intact. Motor and sensory grossly within normal limits. Five out of 5 muscle strength in all muscle groups. Patient had difficulty understanding directions on admission, is clear this am. Oriented to self only on admission, now fine. Seemed to have trouble with certain questions, but had little difficulty with yes/no questions on admission. Intermittently clear in her answers. this am she is cooperative and has a normal neuro exam- sensory, motor and reflexes at the knee Laboratory Laboratory Tests Test 07/18/17 10:26 07/18/17 13:50 07/18/17 16:05 White Blood Count 9.7 Red Blood Count 4.06 Hemoglobin 12.8 Hematocrit 36.1 Mean Corpuscular Volume 89.0 Mean Corpuscular Hemoglobin 31.6 Mean Corpuscular Hemoglobin Concent 35.5 Red Cell Distribution Width 13.8 Platelet Count 320 Mean Platelet Volume 8.2 Neutrophils (%) (Auto) 74.9 Lymphocytes (%) (Auto) 18.8 Monocytes (%) (Auto) 5.7 Eosinophils (%) (Auto) 0.2 Basophils (%) (Auto) 0.4 Neutrophils # (Auto) 7.2 Lymphocytes # (Auto) 1.8 Monocytes # (Auto) 0.5 Eosinophils # (Auto) 0.0 Basophils # (Auto) 0.0 CBC Comment DIFF FINAL Differential Comment Prothrombin Time 24.5 Prothromb Time International Ratio 2.4 Activated Partial Thromboplast Time 35.2 Urine Color YELLOW Urine Turbidity CLEAR Urine pH 8.0 Urine Specific [place] 1.012 Urine Protein TRACE Urine Glucose (UA) NEG Urine Ketones 40 Urine Occult Blood TRACE Urine Nitrite NEG Urine Bilirubin NEG Urine Urobilinogen LESS THAN 2.0 Urine Leukocyte Esterase NEG Urine RBC 5 Urine WBC 1 Urine Squamous Epithelial Cells 1 Urine Renal Epithelial Cells <1 Microscopic Urinalysis Comment CATH-CULT NOT IND Blood Urea Nitrogen 11 11 Creatinine 1.17 1.06 Random Glucose 138 103 Total Protein 8.2 Albumin 4.5 Calcium Level 9.7 8.9 Alkaline Phosphatase 75 Aspartate Amino Transf (AST/SGOT) 35 Alanine Aminotransferase (ALT/SGPT) 23 Total Bilirubin 0.8 Sodium Level 125 128 Potassium Level 2.9 3.7 Chloride Level 92 93 Carbon Dioxide Level 20.7 24.5 Anion Gap 12 11 Estimat Glomerular Filtration Rate 45 51 Lactic Acid Level 3.0 1.3 Ammonia 11 Total Creatine Kinase 178 Troponin I LESS THAN 0.02 Thyroid Stimulating Hormone 3rd Gen 1.180 Salicylates Level LESS THAN 1.7 Urine Opiates Screen NEG Acetaminophen Level LESS THAN 2.0 Urine Barbiturates Screen NEG Urine Amphetamines Screen NEG Urine Benzodiazepines Screen NEG Urine Cocaine Screen NEG Urine Cannabinoids Screen NEG Ethyl Alcohol Level LESS THAN 3 Date/Time Source Procedure Growth Status 07/18/17 16:10 Blood Peripheral Aerobic Blood Culture Pending Received 07/18/17 16:10 Blood Peripheral Anaerobic Blood Culture Pending Received Result Diagram: 07/18/17 1026 07/18/17 1605 Imaging Last Impressions Head CT 07/18/17 1006 Signed Impressions: Service Date/Time: Tuesday, July 18, 2017 12:12 - CONCLUSION: Normal examination. Harshad Bazan MD Chest X-Ray 07/18/17 1006 Signed Impressions: Service Date/Time: Tuesday, July 18, 2017 10:27 - CONCLUSION: No acute disease. Deni Joel MD FACR Ankle X-Ray 07/18/17 0000 Signed Impressions: Service Date/Time: Tuesday, July 18, 2017 14:12 - CONCLUSION: No acute bony findings Harshad Bazan MD Caprini VTE Risk Assessment Caprini VTE Risk Assessment: Mod/High Risk (score >= 2) Caprini Risk Assessment Model Point Value = 1 Point Value = 2 Point Value = 3 Point Value = 5 Age 41-60 Minor surgery BMI > 25 kg/m2 Swollen legs Varicose veins or History of unexplained or recurrent spontaneous Oral contraceptives or hormone replacement Sepsis (< 1 month) Serious lung disease, including pneumonia (< 1 month) Abnormal pulmonary function Acute myocardial infarction Congestive heart failure (< 1 month) History of inflammatory bowel disease Medical patient at bed rest Age 61-74 Arthroscopic surgery Major open surgery (> 45 min) Laparoscopic surgery (> 45 min) Malignancy Confined to bed (> 72 hours) Immobilizing plaster cast Central venous access Age >= 75 History of VTE Family history of VTE Factor V Leiden Prothrombin [id number] Lupus anticoagulant Anticardiolipin antibodies Elevated serum homocysteine Heparin-induced thrombocytopenia Other congenital or acquired thrombophilia Stroke (< 1 month) Elective arthroplasty Hip, pelvis, or leg fracture Acute spinal cord injury (< 1 month) Prophylaxis Regimen Total Risk Factor Score Risk Level Prophylaxis Regimen 0-1 Low Early ambulation 2 Moderate Order ONE of the following: *Sequential Compression Device (SCD) *Heparin 5000 units SQ BID 3-4 Higher Order ONE of the following medications: *Heparin 5000 units SQ TID *Enoxaparin/Lovenox 40 mg SQ daily (WT < 150 kg, CrCl > 30 mL/min) *Enoxaparin/Lovenox 30 mg SQ daily (WT < 150 kg, CrCl > 10-29 mL/min) *Enoxaparin/Lovenox 30 mg SQ BID (WT < 150 kg, CrCl > 30 mL/min) AND/OR *Sequential Compression Device (SCD) 5 or more Highest Order ONE of the following medications: *Heparin 5000 units SQ TID (Preferred with Epidurals) *Enoxaparin/Lovenox 40 mg SQ daily (WT < 150 kg, CrCl > 30 mL/min) *Enoxaparin/Lovenox 30 mg SQ daily (WT < 150 kg, CrCl > 10-29 mL/min) *Enoxaparin/Lovenox 30 mg SQ BID (WT < 150 kg, CrCl > 30 mL/min) AND *Sequential Compression Device (SCD) Assessment and Plan Assessment and Plan 77-year-old white female with past medical history of hypertension and hyperlipidemia and with altered mental status. She has been admitted to our inpatient service. Problem List: (1) Altered mental status ICD Codes: R41.82 - Altered mental status, unspecified Status: Acute Plan: Patient brought in by EMS who was called by a concerned neighbor. Patient originally totally unable to answer questions by ED physician. Upon our assessment she had improved, although unable to answer most of our questioning. Neurological exam relatively normal although patient had difficulty following instructions. Head CT on admission was normal. May be due to CVA versus encephalopathy versus acute hyponatremia versus transient global ischemia -1 L bolus given in ED -Blood cultures pending -MRI pending, however, she was told by her previous Drs in [place] to never get an MRI and declines to get one today because she has a mechanical heart valve. However, per our MRI procedures, she could have one done. -Neurology consulted, appreciate recommendations -Speech therapy consulted for cognitive, aphasia evaluation -PT/OT consulted Neuro checks every 4 hours she is back to normal this am and does not remember meeting her Drs yesterday in the ED or what exactly happened (2) Hyponatremia ICD Codes: E87.1 - Hypo-osmolality and hyponatremia Status: Acute Plan: Moderate acute hyponatremia. Sodium 125 on admission, was 132 two days prior. Patient admits to drinking large amounts of water every day. -Repeat BMP at 1605 shows increased to 128 -Fluid restriction to 2 L will check urine NA and chloride to see if she may have SIADH (3) Hypokalemia ICD Codes: E87.6 - Hypokalemia Status: Acute Plan: Potassium low to 2.9 on admission -Repeat BMP at 1605 showed normalization to 3.7 she had some diarrhea and could have lost K from that (4) Hypertension ICD Codes: I10 - Essential (primary) hypertension Status: Chronic Plan: Unable to continue at home medication Coversyl Per pharmacy recommendations will start lisinopril 10 mg qD while in the hospital -Will continue to monitor (5) Hyperlipemia ICD Codes: E78.5 - Hyperlipidemia, unspecified Status: Chronic Plan: Will continue at home medication Ezetal, Zetia, 10 mg daily (6) FEN Status: Acute Plan: Fluids: Bedside swallow done, she is fine with swallowing today Electrolytes: hyponatremic, hypokalemia resolved. Nutrition: on heart-healthy diet with fluid restriction to 2 L DVT Prophylaxis: Early ambulation. will give coumadin as she has a mechanical valve GI Prophylaxis: None indicated at this time Problem Qualifiers (1) Altered mental status: Qualified Codes: R41.82 - Altered mental status, unspecified (2) Hypertension: Qualified Codes: I10 - Essential (primary) hypertension (3) Hyperlipemia: Qualified Codes: E78.00 - Pure hypercholesterolemia, unspecified Carline Chamorro MD Jul 19, 2017 09:06
[2017-07-19 09:19] LABS: AUTOMATED NEUTROPHIL # 4.2 TH/MM3 (1.8-7.7); BASOPHIL % 0.5 % (0.0-2.0); EOSINOPHIL % 0.4 % (0.0-4.0); HEMATOCRIT 33.3 % (35.0-46.0); HEMOGLOBIN 11.8 GM/DL (11.6-15.3); LYMPH % 25.3 % (9.0-44.0); LYMPHOCYTE # 1.6 TH/MM3 (1.0-4.8); MEAN CELL VOLUME 91.6 FL (80.0-100.0); MEAN CORPUSCULAR HEMOGLOBIN 32.5 PG (27.0-34.0); MEAN CORPUSCULAR HGB CONC 35.5 % (32.0-36.0); MEAN PLATELET VOLUME 8.2 FL (7.0-11.0); MONO % 8.2 % (0.0-8.0); MONOCYTE # 0.5 TH/MM3 (0-0.9); NEUT % 65.6 % (16.0-70.0); PLATELET COUNT 250 TH/MM3 (150-450); RED BLOOD COUNT 3.63 MIL/MM3 (4.00-5.30); RED CELL DISTRIBUTION WIDTH 13.9 % (11.6-17.2); WHITE BLOOD COUNT 6.5 TH/MM3 (4.0-11.0)
--- NOTE | 2017-07-19 09:59 | RADRPT ---
EXAM DATE/TIME: 07/19/2017 09:10 [place] COMPARISON: No previous studies available for comparison. INDICATIONS : Transient ischemic attack. MEDICAL HISTORY : Hypercholesterolemia. Hypertension. SURGICAL HISTORY : Tonsillectomy. Appendectomy. Mitral valve replacement. Lt knee arthroscopy. Left ankle surgery. Lef t wrist surgery. ENCOUNTER: Initial ACUITY: 1 day PAIN SCORE: 0/10 LOCATION: Bilateral neck PEAK SYSTOLIC VELOCITIES (cm/sec): ICA/CCA RATIO: Right: 0.8 Left: 0.8 ICA: Right: 100 Left: 82 CCA: Right: 118 Left: 103 ECA: Right: 81 Left: 93 VERTEBRAL: Right: 48 antegrade Left: 45 antegrade Elevated flow velocities and ICA/CCA ratios have been found to correlate with increased degrees of vessel stenosis, calculated as percentage of diameter relative to a normal segment of distal ICA/CCA FINDINGS: RIGHT CAROTID: No significant stenosis is visualized. Moderate plaque in the bulb. The waveforms are within normal limits. LEFT CAROTID: No significant stenosis is visualized. Moderate plaque in the bulb. The waveforms are within normal l imits. VERTEBRAL ARTERIES: Antegrade flow is seen in both vertebral arteries. MISCELLANEOUS: None. CONCLUSION: No hemodynamically significant stenosis in either carotid artery Everett Baker MD on July 19, 2017 at 9:55 Board Certified Radiologist. This report was verified electronically.
[2017-07-19] MEDS ORDERED: PNEUMOCOCCAL POLYVALENT INJ 25 MCG/0.5 ML SYR IM ONE (10:00)
[2017-07-19 10:05] LABS: ALBUMIN 3.8 GM/DL (3.4-5.0); ALKALINE PHOSPHATASE 55 U/L (45-117); ALT (GPT) 20 U/L (10-53); AST (GOT) 32 U/L (15-37); BICARBONATE 23.1 MEQ/L (21.0-32.0); BLOOD UREA NITROGEN 13 MG/DL (7-18); CALCIUM 8.8 MG/DL (8.5-10.1); CHLORIDE 95 MEQ/L (98-107); CREATININE 1.11 MG/DL (0.50-1.00); GLOMERULAR FILTRATION RATE 48 ML/MIN (>89); GLUCOSE,RANDOM 102 MG/DL (74-106); SODIUM (NA) 127 MEQ/L (136-145); TOTAL BILIRUBIN ADULT 0.9 MG/DL (0.2-1.0); TOTAL PROTEIN 7.2 GM/DL (6.4-8.2)
--- NOTE | 2017-07-19 10:30 | EKG ---
Date Performed: 07/18/2017 Time Performed: 13:18:46 PTAGE: 77 years EKG: SINUS TACHYCARDIA NONSPECIFIC ST & T-WAVE ABNORMALITY ABNORMAL RHYTHM ECG Since the PREVIOUS TRACING , no significant change noted PREVIOUS TRACIN07/16/2017 05.20 DOCTOR: Reese Milan Interpretating Date/Time 07/19/2017 10:28:28
[2017-07-19] MEDS ORDERED: POTASSIUM CHLORIDE 10 MEQ CONTROLLED RELEASE TAB PO ONE (11:30)
[2017-07-19 12:00] VITALS: BP 120/56; PULSE 63; RESP 18; TEMP 98.3; O2SAT 98
[2017-07-19] MEDS ORDERED: WARFARIN SOD 7.5 MG TAB PO ONE (12:00)
[2017-07-19] MEDS ORDERED: WARFARIN SOD 2 MG TAB PO ONE (12:00)
[2017-07-19 16:00] VITALS: BP 114/59; PULSE 64; RESP 18; TEMP 98.3; O2SAT 99
[2017-07-19] MEDS ORDERED: WARFARIN SOD 7.5 MG TAB PO SCH (16:00)
[2017-07-19 20:00] VITALS: BP 145/65; PULSE 68; RESP 20; TEMP 96; O2SAT 97
--- NOTE | 2017-07-19 20:42 | MG ---
cc: Rachel Freedman MD EEG REQUESTED BY: Ramses Urena MD An EEG was obtained on this 77-year-old patient being evaluated for altered mental status, possible seizures. The patient is described as awake and asleep during the study. There are some low and mid amplitude alpha rhythms centrally and posteriorly. There is low-amplitude beta activity diffusely. There is artifact. Intermixed theta and delta rhythms are noted bilaterally. The patient is awake and asleep. There are predominance of theta and delta rhythms along with sleep spindles during the sleep recording. Overall, the rhythm seems to be grossly symmetrical, and photic stimulation was unremarkable. INTERPRETATION: Mildly abnormal electroencephalogram because of mild intermixed background slowing, but no epileptiform features present. The findings suggest a mild diffuse disturbance of cerebral function. Rachel Gandhi. MD [facility] , 08:24 PM , 08:41 PM
[2017-07-20] VITALS: BP 130/62; PULSE 59; RESP 20; TEMP 96.1; O2SAT 97
[2017-07-20 04:00] VITALS: BP 129/60; PULSE 60; RESP 18; TEMP 96; O2SAT 99
[2017-07-20 05:34] LABS: AUTOMATED NEUTROPHIL # 3.9 TH/MM3 (1.8-7.7); BASOPHIL % 0.7 % (0.0-2.0); EOSINOPHIL # 0.1 TH/MM3 (0-0.4); EOSINOPHIL % 1.3 % (0.0-4.0); HEMATOCRIT 32.1 % (35.0-46.0); HEMOGLOBIN 11.5 GM/DL (11.6-15.3); LYMPH % 32.8 % (9.0-44.0); LYMPHOCYTE # 2.3 TH/MM3 (1.0-4.8); MEAN CELL VOLUME 91.8 FL (80.0-100.0); MEAN CORPUSCULAR HEMOGLOBIN 32.7 PG (27.0-34.0); MEAN CORPUSCULAR HGB CONC 35.7 % (32.0-36.0); MONO % 8.5 % (0.0-8.0); MONOCYTE # 0.6 TH/MM3 (0-0.9); NEUT % 56.7 % (16.0-70.0); PLATELET COUNT 241 TH/MM3 (150-450); RED CELL DISTRIBUTION WIDTH 13.8 % (11.6-17.2); WHITE BLOOD COUNT 6.9 TH/MM3 (4.0-11.0)
[2017-07-20 05:44] LABS: INTERNATIONAL NORMALIZED RATIO 1.4 RATIO; PROTHROMBIN TIME - PATIENT 14.5 SEC (9.8-11.6)
[2017-07-20 05:55] LABS: ALBUMIN 3.7 GM/DL (3.4-5.0); AST (GOT) 30 U/L (15-37); BICARBONATE 24.8 MEQ/L (21.0-32.0); BLOOD UREA NITROGEN 17 MG/DL (7-18); CALCIUM 8.9 MG/DL (8.5-10.1); CHLORIDE 93 MEQ/L (98-107); CREATININE 1.07 MG/DL (0.50-1.00); GLOMERULAR FILTRATION RATE 50 ML/MIN (>89); GLUCOSE,RANDOM 96 MG/DL (74-106); SODIUM (NA) 127 MEQ/L (136-145)
[2017-07-20 05:56] LABS: ALT (GPT) 22 U/L (10-53)
[2017-07-20 05:58] LABS: ALKALINE PHOSPHATASE 58 U/L (45-117); TOTAL BILIRUBIN ADULT 0.7 MG/DL (0.2-1.0); TOTAL PROTEIN 7.1 GM/DL (6.4-8.2)
[2017-07-20 08:00] VITALS: BP 131/59; PULSE 59; RESP 16; TEMP 97.9; O2SAT 99
[2017-07-20] MEDS: EZETIMIBE 10 MG TAB PO SCH (09:00)
[2017-07-20] MEDS: LISINOPRIL 10 MG TAB PO SCH (09:43)
--- NOTE | 2017-07-20 09:49 | HHI.FPPN ---
Subjective Remarks Patient seen and examined this morning. She states that she is feeling a lot better from when she was initially admitted. No confusion, no lapses in memory , no fevers or chills, no chest pain, shortness of breath, no abdominal pain, no nausea vomiting, no diarrhea. She states that she has never been diagnosed with hyponatremia before. She stated that her "salt" levels were always normal. (Evelin Leblanc MD R1) Objective Vitals Vital Signs Date Time Temp Pulse Resp B/P (MAP) Pulse Ox O2 Delivery O2 Flow Rate FiO2 07/20/17 04:00 96.0 60 18 129/60 (83) 99 07/20/17 00:00 96.1 59 20 130/62 (84) 97 07/19/17 20:00 96.0 68 20 145/65 (91) 97 07/19/17 16:00 98.3 64 18 114/59 (77) 99 07/19/17 12:00 98.3 63 18 120/56 (77) 98 I/O 07/19/17 07/19/17 07/19/17 07/20/17 07/20/17 07/20/17 07:00 15:00 23:00 07:00 15:00 23:00 Intake Total 120 ml 720 ml 480 ml Output Total 200 ml 150 ml Balance 120 ml 520 ml 330 ml Intake Oral 120 ml 720 ml 480 ml Output Urine Total 200 ml 150 ml # Voids 3 5 1 # Bowel Movements 1 0 (Evelin Leblanc MD R1) Result Diagram: 07/20/17 0436 07/20/17 0436 Imaging Last Impressions Carotid Artery Ultrasound 07/19/17 0000 Signed Impressions: Service Date/Time: Wednesday, July 19, 2017 09:10 - CONCLUSION: No hemodynamically significant stenosis in either carotid artery Everett Baker MD Head CT 07/18/17 1006 Signed Impressions: Service Date/Time: Tuesday, July 18, 2017 12:12 - CONCLUSION: Normal examination. Harshad Bazan MD Chest X-Ray 07/18/17 1006 Signed Impressions: Service Date/Time: Tuesday, July 18, 2017 10:27 - CONCLUSION: No acute disease. Deni Joel MD FACR Ankle X-Ray 07/18/17 0000 Signed Impressions: Service Date/Time: Tuesday, July 18, 2017 14:12 - CONCLUSION: No acute bony findings Harshad Bazan MD Objective Remarks GENERAL: Well-nourished, well-developed patient sitting in bed. SKIN: Warm and dry. HEAD: Normocephalic. EYES: No scleral icterus. No injection or drainage. NECK: Supple, trachea midline. No JVD or lymphadenopathy. CARDIOVASCULAR: Regular rate and rhythm without murmurs, gallops, or rubs. RESPIRATORY: Breath sounds equal bilaterally. No accessory muscle use. GASTROINTESTINAL: Abdomen soft, non-tender, nondistended. EXTREMITIES: No cyanosis, or edema. NEUROLOGICAL: Awake, alert, and oriented x 3. Non-focal. Procedures EEG on 07/19 findings suggest a mild diffuse disturbance of cerebral function. (Evelin Leblanc MD R1) A/P Assessment and Plan 77-year-old white female with past medical history of hypertension and hyperlipidemia and with altered mental status. She has been admitted to our inpatient service. Discharge Planning Once hyponatremia has improved and cleared by Neurology (Evelin Leblanc MD R1) Attending Attestation Patient seen and examined. Case reviewed and discussed with the resident team. Agree with plan of care as discussed with me and documented in the resident note. suspect SIADH. she was on a medicine from [place] that was a diuretic plus brayden inhibitor. while it is difficult to say with certainty that her low Na is due to her med, being off the medicine for several weeks should resolve all issues related to that. she feels 100% back to normal and wants to go home today. she declines any MRIs or MRAs ever no matter what (Carline Chamorro MD) Problem List: (1) Altered mental status ICD Codes: R41.82 - Altered mental status, unspecified Status: Acute Plan: Patient brought in by EMS who was called by a concerned neighbor. Patient originally totally unable to answer questions by ED physician. Upon our assessment she had improved, although unable to answer most of our questioning. Neurological exam relatively normal although patient had difficulty following instructions. Head CT on admission was normal. May be due to CVA versus encephalopathy versus acute hyponatremia versus transient global ischemia Pt back to normal on 07/19 and doid not remember meeting her Drs in the ED or what exactly happened -1 L bolus given in ED -Blood cultures pending -MRI pending, however, she was told by her previous Drs in [place] to never get an MRI and declines to get one today because she has a mechanical heart valve. However, per our MRI procedures, she could have one done. -Neurology consulted, appreciate recommendations -recommends MRI/MRA brain -EEG on 07/19 suggested a mild diffuse disturbance of cerebral function. -Speech therapy consulted for cognitive, aphasia evaluation -no trouble swallowing, will conduct cognitive eval next session -PT/OT consulted -Home with no PT Neuro checks every 4 hours (2) Hyponatremia ICD Codes: E87.1 - Hypo-osmolality and hyponatremia Status: Acute Plan: Moderate acute hyponatremia. Sodium 125 on admission, was 132 two days prior. Patient admits to drinking large amounts of water every day. -Repeat BMP at 1605 shows increased to 128 -Fluid restriction to 2 L -will check urine NA and chloride to see if she may have SIADH -still pending this AM (3) Hypokalemia ICD Codes: E87.6 - Hypokalemia Status: Resolved Plan: Potassium low to 2.9 on admission -Repeat BMP at 1605 showed normalization to 3.7 she had some diarrhea and could have lost K from that (4) Hypertension ICD Codes: I10 - Essential (primary) hypertension Status: Chronic Plan: Unable to continue at home medication Coversyl Per pharmacy recommendations will start lisinopril 10 mg qD while in the hospital -Will continue to monitor (5) Hyperlipemia ICD Codes: E78.5 - Hyperlipidemia, unspecified Status: Chronic Plan: Will continue at home medication Ezetal, Zetia, 10 mg daily (6) FEN Status: Acute Plan: Fluids: Bedside swallow done, she is fine with swallowing today Electrolytes: hyponatremic, hypokalemia resolved. Nutrition: on heart-healthy diet with fluid restriction to 2 L DVT Prophylaxis: Early ambulation. will give coumadin as she has a mechanical valve GI Prophylaxis: None indicated at this time (Evelin Leblanc MD R1) Problem Qualifiers (1) Altered mental status: Qualified Codes: R41.82 - Altered mental status, unspecified (2) Hypertension: Qualified Codes: I10 - Essential (primary) hypertension (3) Hyperlipemia: Qualified Codes: E78.00 - Pure hypercholesterolemia, unspecified Evelin Leblanc MD R1 Jul 20, 2017 09:49 Carline Chamorro MD Jul 20, 2017 12:42
[2017-07-20] MEDS ORDERED: LISI10TA3 PO (11:33)
--- NOTE | 2017-07-20 11:34 | HHI.DCPOC ---
Discharge Care Plan Diagnosis: (1) Altered mental status (2) Hyponatremia Goals to Promote Your Health * To prevent worsening of your condition and complications, follow up with your primary care physician and neurologist after hospital discharge. Directions to Meet Your Goals Take your medications as prescribed Follow your dietary instruction Follow activity as directed Keep your appointments as scheduled Take your immunizations and boosters as scheduled If your symptoms worsen call your PCP, if no PCP go to Urgent Care Center or Emergency Room Smoking is Dangerous to Your Health. Avoid second hand smoke Call the 24-hour hour crisis hotline for domestic abuse at [place] Lyons MD R2 Jul 20, 2017 11:34
[2017-07-20 12:00] VITALS: BP 131/59; PULSE 62; RESP 16; TEMP 98.4; O2SAT 99
[2017-07-20] MEDS ORDERED: ENOXAPARIN SODIUM 40 MG/0.4 ML SYRINGE SQ ONE (12:45)
[2017-07-20 12:51] LABS: SODIUM,RANDOM URINE 29 MEQ/L
[2017-07-20] MEDS ORDERED: SODI1TAB PO (14:07)
[2017-07-20] MEDS ORDERED: SODIUM CHLORIDE 1 GRAM TAB PO ONE (15:00)
[2017-07-20] MEDS ORDERED: WARFARIN SOD 7.5 MG TAB PO SCH (16:00)
[2017-07-20] MEDS ORDERED: WARFARIN SOD 2 MG TAB PO SCH (16:00)
--- NOTE | 2017-07-20 16:52 | HHI.DS ---
Discharge Summary Admission Date Jul 18, 2017 at 14:25 Discharge Date: Jul 20, 2017 Admitting Diagnosis AMS (1) Altered mental status Diagnosis: Principal Plan: Patient brought in by EMS who was called by a concerned neighbor. Patient originally totally unable to answer questions by ED physician. Upon our assessment she had improved, although unable to answer most of our questioning. Neurological exam relatively normal although patient had difficulty following instructions. Head CT on admission was normal. May be due to CVA versus encephalopathy versus acute hyponatremia versus transient global ischemia Pt back to normal on 07/19 and doid not remember meeting her Drs in the ED or what exactly happened -1 L bolus given in ED -Blood cultures pending -MRI pending, however, she was told by her previous Drs in [place] to never get an MRI and declines to get one today because she has a mechanical heart valve. However, per our MRI procedures, she could have one done. -Neurology consulted, appreciate recommendations -recommends MRI/MRA brain -EEG on 07/19 suggested a mild diffuse disturbance of cerebral function. -Speech therapy consulted for cognitive, aphasia evaluation -no trouble swallowing, will conduct cognitive eval next session -PT/OT consulted -Home with no PT Neuro checks every 4 hours ICD Codes: R41.82 - Altered mental status, unspecified Status: Acute (2) Hyponatremia Plan: Moderate acute hyponatremia. Sodium 125 on admission, was 132 two days prior. Patient admits to drinking large amounts of water every day. -Repeat BMP at 1605 shows increased to 128 -Fluid restriction to 2 L -will check urine NA and chloride to see if she may have SIADH -still pending this AM ICD Codes: E87.1 - Hypo-osmolality and hyponatremia Status: Acute (3) Hypokalemia Plan: Potassium low to 2.9 on admission -Repeat BMP at 1605 showed normalization to 3.7 she had some diarrhea and could have lost K from that ICD Codes: E87.6 - Hypokalemia Status: Resolved (4) Hypertension Plan: Unable to continue at home medication Coversyl Per pharmacy recommendations will start lisinopril 10 mg qD while in the hospital -Will continue to monitor ICD Codes: I10 - Essential (primary) hypertension Status: Chronic (5) Hyperlipemia Plan: Will continue at home medication Ezetal, Zetia, 10 mg daily ICD Codes: E78.5 - Hyperlipidemia, unspecified Status: Chronic (6) FEN Plan: Fluids: Bedside swallow done, she is fine with swallowing today Electrolytes: hyponatremic, hypokalemia resolved. Nutrition: on heart-healthy diet with fluid restriction to 2 L DVT Prophylaxis: Early ambulation. will give coumadin as she has a mechanical valve GI Prophylaxis: None indicated at this time Status: Acute Procedures EEG on 07/19 findings suggest a mild diffuse disturbance of cerebral function. Brief History Ms. Ruiz is a 77-year-old white female with a past medical history of hypertension and hyperlipidemia presenting to the ED with altered mental status. She was unable to answer a lot of my questions due to her confusion, but she did remember waking up the morning. She did not have anything for breakfast. She stated that she is not in any pain. No fevers or chills, no chest pain, no trouble breathing, no abdominal pain, no nausea vomiting. Dates that she did have diarrhea the morning, having 3 bowel movements. She was also been drinking a lot of water. She had about 7 bottles of water the day of admission When her left ankle swelling was noted, she stated that she has had surgery on her ankle long time ago. She usually walks with a limp and has swelling. She has not had any recent falls. She was confused in the ED repeating the same thing over and over for hours, " Oh my God" but initially not answering any questions. she was not somnolent at the time we saw her. per her ED Dr who had seen her 2 days prior, she had been completely lucid and a good conversationalist and historian. As she was in the ED, she started to improve and was cooperative with her neuro exam but confused at times. today she did not remember seeing us (her 3 Drs at all). she is back to her normal baseline today according to her 2 neighbors who are in the room with her this am. she had been drinking more water at home for the day or so prior to admission and her initial Na was 125. CBC/BMP: 07/20/17 0436 07/20/17 0436 Significant Findings Laboratory Tests Test 07/18/17 10:26 07/18/17 13:50 07/18/17 16:05 07/19/17 07:28 Neutrophils (%) (Auto) 74.9 % (16.0-70.0) Prothrombin Time 24.5 SEC (9.8-11.6) Activated Partial Thromboplast Time 35.2 SEC (24.3-30.1) Urine Ketones 40 mg/dL (NEG) Urine Occult Blood TRACE (NEG) Urine RBC 5 /hpf (0-3) Creatinine 1.17 MG/DL (0.50-1.00) 1.06 MG/DL (0.50-1.00) Random Glucose 138 MG/DL (74-106) Sodium Level 125 MEQ/L (136-145) 128 MEQ/L (136-145) Potassium Level 2.9 MEQ/L (3.5-5.1) Chloride Level 92 MEQ/L (98-107) 93 MEQ/L (98-107) Carbon Dioxide Level 20.7 MEQ/L (21.0-32.0) Estimat Glomerular Filtration Rate 45 ML/MIN (>89) 51 ML/MIN (>89) Lactic Acid Level 3.0 mmol/L (0.4-2.0) Troponin I LESS THAN 0.02 NG/ML Salicylates Level LESS THAN 1.7 MG/DL Acetaminophen Level LESS THAN 2.0 MCG/ML Test 07/19/17 07:33 07/19/17 07:38 07/19/17 11:22 07/20/17 04:36 Creatinine 1.11 MG/DL (0.50-1.00) 1.07 MG/DL (0.50-1.00) Sodium Level 127 MEQ/L (136-145) 127 MEQ/L (136-145) Potassium Level 3.4 MEQ/L (3.5-5.1) Chloride Level 95 MEQ/L (98-107) 93 MEQ/L (98-107) Estimat Glomerular Filtration Rate 48 ML/MIN (>89) 50 ML/MIN (>89) Red Blood Count 3.63 MIL/MM3 (4.00-5.30) 3.50 MIL/MM3 (4.00-5.30) Hematocrit 33.3 % (35.0-46.0) 32.1 % (35.0-46.0) Monocytes (%) (Auto) 8.2 % (0.0-8.0) 8.5 % (0.0-8.0) C-Reactive Protein 0.74 MG/DL (0.00-0.30) Hemoglobin 11.5 GM/DL (11.6-15.3) Prothrombin Time 14.5 SEC (9.8-11.6) Test 07/20/17 12:00 PE at Discharge GENERAL: Well-nourished, well-developed patient sitting in bed. SKIN: Warm and dry. HEAD: Normocephalic. EYES: No scleral icterus. No injection or drainage. NECK: Supple, trachea midline. No JVD or lymphadenopathy. CARDIOVASCULAR: Regular rate and rhythm without murmurs, gallops, or rubs. RESPIRATORY: Breath sounds equal bilaterally. No accessory muscle use. GASTROINTESTINAL: Abdomen soft, non-tender, nondistended. EXTREMITIES: No cyanosis, or edema. NEUROLOGICAL: Awake, alert, and oriented x 3. Non-focal. Pt Condition on Discharge: Stable Discharge Disposition: Discharge Home Discharge Instructions DIET: Follow Instructions for: Heart Healthy Diet Activities you can perform: Regular-No Restrictions Evelin Leblanc MD R1 Jul 20, 2017 16:52
== END 2017-07-20 08:36 | disposition home or self-care (01) | DRG 948 ==
LOC: NEPE 09:56 → NEDA 14:25 → N03B 17:27
PROVIDERS: ADMIT Family Medicine; ATTEND Family Medicine
DX: R41.82 Altered mental status, unspecified (principal); E87.1 Hypo-osmolality and hyponatremia; I10 Essential (primary) hypertension; E78.5 Hyperlipidemia, unspecified; E87.6 Hypokalemia; R19.7 Diarrhea, unspecified; E78.00 Pure hypercholesterolemia, unspecified; R79.89 Other specified abnormal findings of blood chemistry; M25.472 Effusion, left ankle; Z95.2 Presence of prosthetic heart valve
CPT/HCPCS: 70450; 71045; 73610; 80048; 80053; 80307; 81001; 82140; 82436; 82550; 83605; 84300; 84443; 84484; 85025; 85610; 85652; 85730; 86140; 87040; 93005; 93880; 95819; 96374; 96375; J1650; J2060; J2250; J2405; J7030